=== PATIENT | male | born 1990 | race Caucasian/White ===

== ENCOUNTER 2018-07-20 09:49 | Emergency (ER) | payer OTHER ==
--- NOTE | 2018-07-20 10:37 | ED Physician Documentation ---
PD HPI OPHTHO - Stated complaint Stated Complaint: RT EYE IRRATION - Chief complaint Chief Complaint: Heent - History obtained from History obtained from: Patient - History of Present Illness Timing - onset: How many days ago (2) Timing - duration: Days (2) Timing - details: Gradual onset, Still present Location: Right Quality / character: Burning, Other (dry with fb sensation) Associated symptoms: Redness, Swelling, FB sensation Contributing factors: Other (exposure to excessive dust) Similar symptoms before: Has not had sx before Recently seen: Not recently seen - Additional information Additional information: 27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 He has the irritation between the iris and the nose on the right side with a small fleshy bump on the sclera. The sclera is injected on that side and he states he has not been able to find a foreign body in there but it feels like there is something stuck in there and his eye feels excessively dry. He has not a change in his vision. He has not had a problem with this previously and he has never noticed the small white bump that he has on his scl era. Review of Systems Constitutional: denies: Fever Eyes: reports: Irritation. denies: Loss of vision, Decreased vision, Photophobia Ears: denies: Ear pain Nose: denies: Congestion Throat: denies: Sore throat Respiratory: denies: Cough PD PAST MEDICAL HISTORY - Past Medical History Past Medical History: No - Past Surgical History Past Surgical History: Yes General: Other - Present Medications Home Medications: Ambulatory Orders Medication Instructions Recorded Confirmed Neomycin/Poly/Dex Ophth Drops 1 drops RIGHTEYE QID #1 bottle 07/20/18 [Maxitrol Ophth Drops] - Allergies Allergies/Adverse Reactions: Allergies Allergy/AdvReac Type Severity Reaction Status Date / Time Penicillins Allergy Unknown Verified 07/20/18 09:55 - Social History Does the pt smoke?: No Smoking Status: Never smoker Does the pt drink ETOH?: Yes Does the pt have substance abuse?: No - Immunizations Immunizations are current?: Yes - POLST Patient has POLST: No PD ED PE NORMAL - Vitals Vital signs reviewed: Yes (hypertensive) - General General: Alert and oriented X 3, No acute distress, Well developed/nourished - HEENT HEENT: Atraumatic, PERRL, EOMI, Other (There is injection to the sclera medially and a penguicula is present. There is no FB seen and the medial aspect of the eye appears dry. There is no drainage. The eye looks normal otherwise. ) - Neck Neck: Supple, no meningeal sign, No bony TTP - Respiratory Respiratory: No respiratory distress - Derm Derm: Normal color, Warm and dry, No rash - Extremities Extremities: No deformity, No edema - Neuro Neuro: Alert and oriented X 3, jewel hole gauger 2-12 intact, No motor deficit, No sensory deficit, Normal speech Eye Opening: Spontaneous Motor: Obeys Commands Verbal: Oriented GCS Score: 15 - Psych Psych: Normal mood, Normal affect Results - Vitals Vitals: Vital Signs - 24 hr 07/20/18 09:53 Temperature 36.9 C Heart Rate 63 Respiratory 18 Rate Blood Pressure 133/94 H O2 Saturation 97 Oxygen O2 Source Room air PD MEDICAL DECISION MAKING - ED course Complexity details: considered differential, d/w patient, d/w family ED course: 27 y/o male with a penguicula on the right medial eye. Departure - Departure Disposition: 01 Home, Self Care Clinical Impression: Pingueculitis of right eye Condition: Stable Instructions: Dry Eye Follow-Up: Lion Macias MD [Provider Admit Priv/Credential] - Prescriptions: Neomycin/Poly/Dex Ophth Drops [Maxitrol Ophth Drops] 1 drops RIGHTEYE QID #1 bottle
[2018-07-20 10:57] VITALS: BP 128/79
== END 2018-07-20 10:55 | disposition home or self-care (01) ==
LOC: ED 09:49
DX: H10.811 Pingueculitis, right eye (principal)
CPT/HCPCS: 99283